=== PATIENT | female | born 1995 | race Caucasian/White ===

== ENCOUNTER 2020-02-11 14:33 | Emergency (ER) | payer OTHER ==
[~2020-02-11] VITALS: Ht 170.2 cm; Wt 73.0 kg
[2020-02-11 14:40] VITALS: BP 116/73
--- NOTE | 2020-02-11 14:54 | PHYS DOC ---
General Adult EDM: Chief Complaint: AYALALER HPI: HPI: 24 yo F who denies any significant PMH presents to the ed with c/o left upper back pain described as "spasms" that started a few hours prior to arrival. Cannot recall any trauma or heavy lifting, sleeping on neck wrong. States because of "shoulder pain," was referred to the ed. No recent URI or confirmed exposure to covid. No recent trauma/surgery/hospitalizations. No h/o DVT/PE. No FH ACS. is 9 months from an uncomplicated , currently breast feeding. ROS: No associated fever, chills, cough, dyspnea, sore throat, chest pressure/heavy/tight/tearing/ripping pain, hemoptysis, leg swelling, rash, syncope, light-headedness, dizziness, weight gain/swelling, orthopnea or neuro deficits. Review of Systems: Review of Systems: Constitutional: Denies fever or chills Eyes: Denies change in visual acuity HENT: Denies nasal congestion or sore throat Respiratory: Denies cough or shortness of breath Cardiovascular: Denies chest pain or edema GI: Denies abdominal pain, nausea, vomiting, bloody stools or diarrhea : Denies dysuria Musculoskeletal: Denies back pain or joint pain Integument: Denies rash Neurologic: Denies headache, focal weakness or sensory changes Endocrine: Denies polyuria or polydipsia Lymphatic: Denies swollen glands Psychiatric: Denies depression or anxiety Heart Score: HEART Score for Chest Pain: HEART Score for Chest Pain Response (Comments) Value History Slighlty/Non-Suspicious 0 ECG Normal 0 Age < 45 0 Risk Factors No Risk Factors 0 Troponin < Normal Limit 0 Total 0 Risk Factors: Risk Factors: DM, Current or recent (<one month) smoker, HTN, HLP, family hist ory of CAD, obesity. Risk Scores: Score 0 - 3: 2.5% MACE over next 6 weeks - Discharge Home Score 4 - 6: 20.3% MACE over next 6 weeks - Admit for Clinical Observation Score 7 - 10: 72.7% MACE over next 6 weeks - Early Invasive Strategies Physical Exam: PE: Constitutional: Well developed, well nourished, no acute distress, non-toxic appearance, afebrile HENT: Normocephalic, atraumatic, bilateral external ears normal, oropharynx moist, no oral exudates, nose normal. [] Eyes: PERRLA, EOMI, conjunctiva normal, no discharge. [] Neck: Normal range of motion, no tenderness, supple, no stridor. [] Cardiovascular:Heart rate regular rhythm, no murmur [] Lungs & Thorax: Bilateral breath sounds clear to auscultation [] Abdomen: Bowel sounds normal, soft, no tenderness, no masses, no pulsatile masses. [] Skin: Warm, dry, no erythema, no rash. Back: No tenderness, no CVA tenderness, significant ttp over left trapezius and head of biceps insertion-worsened with left shoulder abduction/extension Extremities: No tenderness, no cyanosis, no clubbing, ROM intact, no edema. [] Neurologic: Alert and oriented X 3, normal motor function, normal sensory function, no focal deficits noted. [] Psychologic: Affect normal, judgement normal, mood normal, slighty anxious EKG: EKG: Sinus rhythm at 63 bpm, no axis deviation, normal intervals, T wave inversion lead III, no ST elevations or ST depressions Radiology/Procedures: Radiology/Procedures: []IMAGING REPORT Signed PATIENT: isabella aggarwal ACCOUNT: [id number] : 1995 LOCATION: ER AGE: 24 SEX: F EXAM STATUS: PRE ER ORD. PHYSICIAN: AMELIA TAYLOR DO REASON: shoulde rpain PROCEDURE: CHEST AP ONLY Single AP view of the chest. Comparison: None. Indication: Chest and shoulder pain Findings: The heart is not enlarged. There is no pneumothorax or effusion. No air space or interstitial disease. Impression: 1. No acute cardiopulmonary process. Electronically signed by: Geovany Murphy MD (02/11/2020 3:38 PM) [id number] DICTATED AND SIGNED BY: GEOVANY MURPHY MD DATE: 02/11/20 1538 CC: AMELIA TAYLOR DO ~ Impressions: Concern for left trapezius musculoskeletal spasm, low suspicion for life-threatening causes of upper chest or shoulder discomfort including ACS versus PE versus dissection versus cardiogenic shock versus myocarditis versus pericarditis, etc. Pt very well appearing. Still low risk for MACE (even if troponin was > 3x). PERC negative. Patient will be treated conservatively with anti-inflammatories and muscle relaxers. Urgent PMD follow-up in 24 to 48 hours. Strict ED return precautions for difficulties breathing, syncope or near syncope. All patient's questions were answered and she was stable at time of discharge. Due to breast feeding (9 months pp), avoid BF x 24 hours due to valium. To continue OTC analgesia, rest, warm compresses and conservative outpt mngmt. I spoken with the patient and her caregivers. I explained the patient's co ndition, diagnoses and treatment plan based on the information available to me at this time. I have answered the patient and her caregiver's questions and addressed any concerns. The patient and her caregivers have a good understanding of patient's diagnosis, condition and treatment plan as can be expected at this point. Vital signs have been stable. Patient's condition is stable and appropriate for discharge from the emergency department. Patient will pursue further outpatient evaluation with primary care physician or other designated or consulting physician as outlined in the discharge instructions. The patient and/or caregivers are agreeable to this plan of care and follow-up instructions have been explained in detail. The patient and/or caregivers have received these instructions in written form and have expressed an understanding of the discharge instructions. The patient and/or caregivers are aware that any significant change of condition or worsening of symptoms should prompt immediate return to this or the closest emergency department or call to 911. Course & Med Decision Making: Course & Med Decision Making Pertinent Labs and Imaging studies reviewed. (See chart for details) [] Nydia Disclaimer: Nydia Disclaimer: This electronic medical record was generated, in whole or in part, using a voice recognition dictation system. Departure Departure: Impression: Primary Impression: Trapezius muscle strain Disposition: HOME, SELF-CARE Condition: STABLE Patient Instructions: Musculoskeletal Pain AMELIA TAYLOR DO February 11, 2020 14:54
[2020-02-11] MEDS ORDERED: diazePAM 5 MG TABLET PO ONE (15:00)
[2020-02-11] MEDS ORDERED: LIDOCAINE (700MG/PATCH) PATCH. TD ONE (15:00)
--- NOTE | 2020-02-11 15:16 | EKG ---
[address] [address] Test Date: 2020-02-11 Test Time: 15:05:45 Pat Name: isabella aggarwal Department: Room: Gender: F [employer] Teacher: : 1995 Requested By: AMELIA TAYLOR Order Number: [id number] Reading MD: Cachorro Patiño Measurements Intervals [place] Rate: 63 P: 0 VT: 120 QRS: 49 QRSD: 66 T: 9 QT: 380 QTc: 392 Interpretive Statements SINUS RHYTHM ATRIAL PREMATURE COMPLEX(ES) Electronically Signed On 02-14-2020 7:49:38 CDT by Cachorro Patiño
--- NOTE | 2020-02-11 15:41 | RAD ---
Single AP view of the chest. Comparison: None. Indication: Chest and shoulder pain Findings: The heart is not enlarged. There is no pneumothorax or effusion. No air space or interstitial disease. Impression: 1. No acute cardiopulmonary process. Electronically signed by: Geovany Simeon MD (02/11/2020 3:38 PM) [id number]
[2020-02-11] MEDS ORDERED: IBUPROFEN 600 MG TABLET. PO ONE (15:45)
[2020-02-12] MEDS ORDERED: LIDOCAINE (700MG/PATCH) PATCH. TD ONE (09:00)
== END 2020-02-11 16:21 | disposition home or self-care (01) ==
LOC: ER 14:33
DX: S46.812A Strain of other muscles, fascia and tendons at shoulder and upper arm level, left arm, initial encounter (principal); M54.6 Pain in thoracic spine; X58.XXXA Exposure to other specified factors, initial encounter; Y93.89 Activity, other specified; Y92.89 Other specified places as the place of occurrence of the external cause; Y99.8 Other external cause status
CPT/HCPCS: 71045; 93005; 99283

== ENCOUNTER 2021-02-23 19:41 | Emergency (ER) | payer OTHER ==
[~2021-02-23] VITALS: Ht 170.2 cm; Wt 74.2 kg
--- NOTE | 2021-02-23 20:29 | PHYS DOC ---
Past History Past Medical History: No Pertinent History Past Surgical History: Other Additional Past Surgical Histo: heel Alcohol Use: None Adult General Chief Complaint Chief Complaint: ABDOMINAL PAIN HPI HPI Patient is an otherwise healthy 25-year-old female who is presents with epigastric abdominal pain, intermittently, 5 out of 10, dull and achy in nature over the last couple of days. States that approximately 1 hour after eating she feels bloated, has pain/discomfort and will vomit. States that she can drink fluids without this issue. States she is never had anything like this before. Denies any recent travel, traumas, fevers, chest pain, shortness of breath, dysuria, hematuria, blood in the stool. States her last menstrual cycle was normal and ended 2 weeks ago. Denies any alcohol or drug use. States that currently in the emergency department she feels okay but as soon as she tries to eat or if she pushes on the area causes discomfort. Denies any history of heartburn outside of . Review of Systems Review of Systems Review of systems otherwise unremarkable except noted in the HPI Allergies Allergies Allergies Coded Allergies Type Severity Reaction Last Updated Verified No Known Drug Allergies 02/11/20 No Physical Exam Physical Exam Constitutional: Well developed, well nourished, no acute distress, non-toxic appearance. [] HENT: Normocephalic, atraumatic, bilateral external ears normal, oropharynx moist, no oral exudates, nose normal. [] Eyes: conjunctiva normal, no discharge. [] Cardiovascular:Heart rate regular rhythm, no murmur [] Lungs & Thorax: Bilateral breath sounds clear to auscultation [] Abdomen: soft, mild epigastric tenderness, no masses, no rebound or guarding, no pulsatile masses. [] Skin: Warm, dry, no erythema, no rash. [] Back: no CVA tenderness. [] Extremities: No tenderness, ROM intact, no edema. [] Neurologic: Alert and oriented X 3, normal motor function, normal sensory function, no focal deficits noted. [] Psychologic: Affect normal, judgement normal, mood normal. [] Current Patient Data Lab Results Laboratory Tests Test 02/23/21 20:04 POC Urine HCG, Qualitative hcg negative (Negative) EKG EKG [] Radiology/Procedures Radiology/Procedures [] FINDINGS: Heart size is normal. No pericardial effusion. Visualized lung bases are clear. No pleural effusion. Liver, spleen, pancreas, gallbladder and adrenals are unremarkable. No perinephric inflammation or hydronephrosis. No renal or ureteral calculi are identified. Bladder is partially distended and not well evaluated. Uterus is nonenlarged. No abnormal adnexal mass. Large and small bowel are unremarkable. Appendix is normal. No free intra- abdominal air or fluid. No obstruction. Abdominal aorta has a normal course and caliber. Abdominal vasculature is patent . No enlarged intra-abdominal intra-abdominal lymph nodes are identified. No suspicious osseous lesions or acute fractures. IMPRESSION: 1. Trace free fluid in the pelvis, may be physiologic. 2. Otherwise, no acute process identified within the abdomen or pelvis. Electronically signed by: Kendra Bowser MD (02/23/2021 10:22 PM) [facility] Heart Score C/O Chest Pain: No Risk Factors: Risk Factors: DM, Current or recent (<one month) smoker, HTN, HLP, family history of CAD, obesity. Risk Scores: Risk Factors: DM, Current or recent (<one month) smoker, HTN, HLP, family history of CAD, obesity. Course & Med Decision Making Course & Med Decision Making Patient is a 25-year-old female who presents with abdominal pain/epigastric pain intermittently over the last 2 days, worse with eating Vital signs not concerning. Physical exam noted above. Patient denies need for nausea or pain medicine at this time. Laboratory analysis not concerning. Urinalysis with some bacteria and leukocyte esterase, but patient states she is having no dysuria, hematuria, frequency or urgency. Opted out of antibiotic treatment at this time. CT of the abdomen pelvis with no acute findings. Discussed all findings with patient advised to follow-up on Friday with primary care physician to discuss ED visit. Gave return precautions to the ED. Patient grateful, verbalized understanding and agreed with plan of discharge. [] Dragon Disclaimer Dragon Disclaimer This electronic medical record was generated, in whole or in part, using a voice recognition dictation system. Departure Departure: Impression: Primary Impression: Abdominal pain Disposition: HOME / SELF CARE / HOMELESS Condition: GOOD Referrals: PCP,UNKNOWN (PCP) FREDRICK VALLEJO MD, PETER J MD Patient Instructions: Abdominal Pain (Nonspecific) Additional Instructions: Please read all the attached information very carefully. Your imaging, and labs were not concerning as discussed. Your urine was slightly abnormal but you are having no urinary symptoms. Please call your primary care physician first thing Friday morning to discuss your ED visit and set up a follow-up soon as you can. Please come back to the ED with new or concerning symptoms as discussed. GREER HUTTON MD February 23, 2021 20:29
[2021-02-23] MEDS ORDERED: lexapro (20:30)
[2021-02-23 20:40] LABS: BASO % 1 % (0-3); EOS # 0.2 x10^3/uL (0.0-0.7); EOS % 3 % (0-3); HEMATOCRIT 38.3 % (36.0-47.0); HEMOGLOBIN 12.9 g/dL (12.0-15.5); LYMPH # 3.5 x10^3/uL (1.0-4.8); LYMPH % 43 % (24-48); MEAN CORPUSCULAR HEMOGLOBIN 30 pg (25-35); MEAN CORPUSCULAR HGB CONC 34 g/dL (31-37); MEAN CORPUSCULAR VOLUME 88 fL (79-100); MONO # 0.6 x10^3/uL (0.0-1.1); MONO % 7 % (0-9); NEUT # 3.8 x10^3uL (1.8-7.7); NEUT % 47 % (31-73); PLATELET COUNT 305 x10^3/uL (140-400); RED BLOOD COUNT 4.34 x10^6/uL (3.50-5.40); RED CELL DISTRIBUTION WIDTH 14.3 % (11.5-14.5); WHITE BLOOD COUNT 8.1 x10^3/uL (4.0-11.0)
[2021-02-23 20:49] LABS: CALCIUM 9.1 mg/dL (8.5-10.1); GFR 66.5; POTASSIUM 3.9 mmol/L (3.5-5.1)
[2021-02-23 20:55] LABS: ALBUMIN 4.2 g/dL (3.4-5.0); ALBUMIN/GLOBULIN RATIO 1.2 (1.0-1.7); TOTAL BILIRUBIN 0.4 mg/dL (0.2-1.0); TOTAL PROTEIN 7.7 g/dL (6.4-8.2)
[2021-02-23 20:59] LABS: BACTERIA,URINE MANY /HPF (0-FEW); BILIRUBIN,URINE NEG (NEG); CLARITY,URINE HAZY; COLOR,URINE YELLOW; GLUCOSE,URINE NEG (NEG); NITRITE,URINE NEG (NEG); RBC,URINE 0 /HPF (0-2); SQUAMOUS EPITHELIAL CELL,UR MANY /LPF; UROBILINOGEN,URINE 0.2 mg/dL (0.2 mg/dL)
[2021-02-23] MEDS: IOHEXOL 300 MG/ML 75 ML VIAL. IV ONE (21:58)
--- NOTE | 2021-02-23 22:25 | RAD ---
Exam: CT of abdomen and pelvis with contrast INDICATION: Epigastric pain TECHNIQUE: Sequential axial images through the abdomen and pelvis obtained following the administrati on of 150 mL of Isovue-300 IV contrast. Sagittal and coronal reformatted images were reconstructed fr om the axial data and reviewed. Exposure: One or more of the following in the visualized dose reduction techniques were utilized for this examination: 1. Automated exposure control 2. Adjustment of the MA and/or KV according to patient size 3. Use of iterative of reconstructive technique Comparisons: None FINDINGS: Heart size is normal. No pericardial effusion. Visualized lung bases are clear. No pleural effusion. Liver, spleen, pancreas, gallbladder and adrenals are unremarkable. No perinephric inflammation or hydronephrosis. No renal or ureteral calculi are identified. Bladder is partially distended and not well evaluated. Uterus is nonenlarged. No abnormal adnexal mas s. Large and small bowel are unremarkable. Appendix is normal. No free intra-abdominal air or fluid. No obstruction. Abdominal aorta has a normal course and caliber. Abdominal vasculature is patent. No enlarged intra-abdominal intra-abdominal lymph nodes are identified. No suspicious osseous lesions or acute fractures. IMPRESSION: 1. Trace free fluid in the pelvis, may be physiologic. 2. Otherwise, no acute process identified within the abdomen or pelvis. Electronically signed by: Kendra Bowser MD (02/23/2021 10:22 PM) [facility]
[2021-02-23 22:35] VITALS: BP 118/80
== END 2021-02-23 22:48 | disposition home or self-care (01) ==
LOC: ER 19:41
DX: R10.13 Epigastric pain (principal)
CPT/HCPCS: 36415; 74177; 80053; 81001; 81025; 83690; 85025; 87086; 99285; Q9967